=== PATIENT | male | born 1995 ===

== ENCOUNTER 2020-12-26 20:00 | Emergency (ER) ==
[~2020-12-26] VITALS: Ht 182.9 cm; Wt 106.0 kg
--- NOTE | 2020-12-26 21:13 | REPVR ---
PROCEDURE INFORMATION: Exam: XR Left Knee Exam date and time: 12/26/2020 8:53 PM Age: 24 years old Clinical indication: Pain; Knee; Left; Additional info: Swelling, pain TECHNIQUE: Imaging protocol: XR Left knee. Views: 4 or more views. COMPARISON: No relevant prior studies available. FINDINGS: Bones/joints: Separate sesamoid bone in the inferior aspect of the inferior patellar tendon. No fractures. No joint effusions. Soft tissues: Normal. IMPRESSION: Negative left knee. Electronically signed by: Srinivas Muse On 12/26/2020 21:13:43 PM
== END 2020-12-27 00:07 | disposition left against medical advice (07) ==
LOC: M ED 20:00
DX: Z53.21 Procedure and treatment not carried out due to patient leaving prior to being seen by health care provider (principal)